=== PATIENT | female | born 1965 | race Caucasian/White ===

== ENCOUNTER 2019-01-29 09:22 | Outpatient (CLI) | payer OTHER ==
--- NOTE | 2019-01-29 09:50 | RAD ---
Exam: Chest 2 views: HISTORY: Cough for one week COMPARISON: 06/29/2015 FINDINGS: Parenchymal changes in the left infrahilar region and left lower lobe concerning for the possibility of pneumonia/pneumonitis and possible partial atelectasis. In the right midlung zone, right middle lobe, there is some linear parenchymal change which appears to be little change from 2015 study proba ivett some scarring or partial atelectasis. The mid and upper lung zones are clear. Heart size is normal. IMPRESSION: Right middle lobe and left lower lobe parenchymal changes, right middle lobe appears stable. Pneumoni a and/or partial atelectasis, and/or scarring suspected in the left lower lobe. Correlate clinically.
== END 2019-01-29 09:23 | disposition home or self-care (01) ==
LOC: BICRAD 09:22
PROVIDERS: ATTEND Family Medicine
DX: J44.9 Chronic obstructive pulmonary disease, unspecified (principal)
CPT/HCPCS: 71046

== ENCOUNTER 2019-09-02 14:15 | Outpatient (CLI) | payer OTHER ==
--- NOTE | 2019-09-02 14:35 | RAD ---
Right knee 4 views HISTORY: Right knee injury. FINDINGS: Joint spaces are preserved. No acute fracture, dislocation, or fluid distention of the supr apatellar bursa evident. IMPRESSION: No acute osseous abnormalities are demonstrated.
--- NOTE | 2019-09-02 16:32 | RAD ---
RIGHT FIFTH FINGER THREE VIEWS: HISTORY: Injury and pain to fifth finger. FINDINGS: There is abnormal ventral angulation of the tuft of the distal phalanx however there is no fracture l ine visible. There is evidence of mild soft tissue swelling. No dislocation. IMPRESSION: No evidence of fracture. Slight ventral angulation of the tuft of the distal phalanx seen on the late ral view could represent old injury. POS: [facility]
== END 2019-09-02 14:16 | disposition home or self-care (01) ==
LOC: BICRAD 14:15
PROVIDERS: ATTEND Family Medicine
DX: S60.051A Contusion of right little finger without damage to nail, initial encounter (principal); S80.01XA Contusion of right knee, initial encounter

== ENCOUNTER 2020-01-06 10:08 | Outpatient (CLI) | payer OTHER ==
--- NOTE | 2020-01-06 11:08 | ULT ---
EXAM: US Venous Doppler [facility] PROVIDED CLINICAL HISTORY: Left upper extremity edema and left arm pain from the level of the wrist to just above the antecubita l fossa. Symptoms have been present for 2 weeks. COMPARISON: None FINDINGS: Grayscale, color-flow, Doppler evaluation of left upper extremity venous structures is performed with 2-D imaging. Normal luminal compressibility and flow are seen in the left internal jugular and axillary veins. Nor mal flow is present in the left subclavian vein. Flow is present within the left upper extremity brachial vein. Grayscale imaging was not performed. F low appears to be present in the limited visualized left radial and ulnar veins. There is normal luminal compressibility and flow seen in the left upper extremity cephalic and basili c veins. IMPRESSION: No evidence of a DVT involving the visualized deep venous structures left upper extremity.
--- NOTE | 2020-01-06 11:38 | MMO ---
Bilateral MAMMO Bilat Screen [facility]. CLINICAL HISTORY: Patient is 54 years old and is seen for screening. The patient has the following family history of breast cancer: sister. The patient has no personal history of cancer. VIEWS: The views performed were: bilateral craniocaudal with tomosynthesis and bilateral mediolateral oblique with tomosynthesis. FILMS COMPARED: The present examination has been compared to prior imaging studies performed at [facility] on 05/25/2011 and 08/13/2011. This study has been interpreted with the assistance of computer-aided detection. MAMMOGRAM FINDINGS: There are scattered fibroglandular densities. There are vascular and punctate calcifications seen in both breasts. There are no suspicious masses, suspicious calcifications, or new areas of architectural distortion. IMPRESSION: THERE IS NO MAMMOGRAPHIC EVIDENCE OF MALIGNANCY. A ROUTINE FOLLOW-UP MAMMOGRAM IN 1 YEAR IS RECOMMENDED. THE RESULTS OF THIS EXAM WERE SENT TO THE PATIENT. ACR BI-RADS Category 2 - Benign finding MAMMOGRAPHY NOTE: 1. A negative mammogram report should not delay a biopsy if a dominant of clinically suspicious mass is present. 2. Approximately 10% to 15% of breast cancers are not detected by mammography. 3. Adenosis and dense breasts may obscure an underlying neoplasm. Reported by: ERASMO CLAUDIO MD Electonically Signed: [id number]
== END 2020-01-06 10:09 | disposition home or self-care (01) ==
LOC: BICULT 10:08
PROVIDERS: ATTEND Family Medicine
DX: Z12.31 Encounter for screening mammogram for malignant neoplasm of breast (principal); I82.622 Acute embolism and thrombosis of deep veins of left upper extremity; Z80.3 Family history of malignant neoplasm of breast
CPT/HCPCS: 77063; 77067

== ENCOUNTER 2024-04-07 11:52 | Outpatient (CLI) | payer OTHER | END 2024-04-07 11:53 | disposition home or self-care (01) | LOC: BICRAD 11:52 | PROVIDERS: ATTEND Physician Assistant Medical | DX: K59.00 Constipation, unspecified (principal); R14.0 Abdominal distension (gaseous) | CPT/HCPCS: 74019 ==

== ENCOUNTER 2024-06-09 10:02 | Outpatient (CLI) | payer OTHER | END 2024-06-09 10:03 | disposition home or self-care (01) | LOC: BICCT 10:02 | PROVIDERS: ATTEND Physician Assistant Medical | DX: K59.00 Constipation, unspecified (principal); R10.10 Upper abdominal pain, unspecified; R14.0 Abdominal distension (gaseous) | CPT/HCPCS: 74176; 82565 ==

== ENCOUNTER 2024-11-20 09:45 | Emergency (ER) | payer MEDICAID, OTHER ==
[2024-11-20 10:19] LABS: Bilirubin Negative (Negative); Blood, Urine 3+ (Negative); CAUTI Indications for Culture Dysuria,urgency,freq; Clarity Turbid (Clear); Glucose, Urine (Dipstick) Normal (Negative); Ketone, Urine Negative (Negative); Leukocyte 500 Leu/uL (Negative); Nitrite Negative (Negative); Protein, Urine (Dipstick) 50 mg/dL (Neg-Trace); RBC/HPF Greater than 50 HPF (0-3); Specific Gravity, Urine 1.023 (1.002-1.036); Squamous Epithelial 0-3 HPF (0-3); WBC/HPF Greater than 50 HPF (0-3)
[2024-11-20 10:20] LABS: Bacteria/HPF 1+ HPF (None Seen)
[2024-11-20 10:22] LABS: Urine Culture Reflex Yes Yes
[2024-11-20 11:18] LABS: #Basophils 0.05 10x3/uL (0.0-0.2); %Basophils 0.4 % (0.0-1.0); %Eosinophils 1.6 % (0.0-10.0); %Lymphocytes 22.3 % (21.0-51.0); %Monocytes 5.6 % (0.0-10.0); %Neutrophils 69.9 % (42.0-75.0); Hematocrit 43.5 % (36.0-47.0); Hemoglobin 14.3 g/dL (12.0-16.0); Mean Corpuscular HGB CONC 32.9 g/dL (32.0-36.0); Mean Corpuscular Volume 91.2 fL (78.0-98.0); Mean Platelet Volume 8.4 fL (7.4-10.4); Platelet Count 249 10x3/uL (130-400); RBC Distribution Width 12.9 % (11.5-14.5); Red Blood Cell (RBC) Count 4.77 mill/uL (4.20-5.40)
[2024-11-20 11:43] LABS: ALT (SGPT) 29 U/L (Less than 34); AST (SGOT) 34 U/L (11-34); Alkaline Phosphatase 83 U/L (40-110); Anion Gap 11 mmol/L (10-20); BUN (Urea Nitrogen) 12 mg/dL (9.8-20.1); Bilirubin, Total 0.7 mg/dL (0.3-1.2); Calc. Creatinine Clearance 0 mL/min (70-130); Carbon Dioxide 26 mmol/L (22-29); Chloride 106 mmol/L (98-107); Estimated GFR 49; Globulin 4.2 g/dL (2.4-3.5); Glucose 97 mg/dL (70-105); Potassium 4.2 mmol/L (3.5-5.1); Protein, Total 8.2 g/dL (6.0-8.3); Sodium 139 mmol/L (136-145)
== END 2024-11-20 13:02 | disposition home or self-care (01) ==
LOC: ERS 09:45
DX: N39.0 Urinary tract infection, site not specified (principal); F17.210 Nicotine dependence, cigarettes, uncomplicated; I25.2 Old myocardial infarction; I10 Essential (primary) hypertension; Z86.73 Personal history of transient ischemic attack (TIA), and cerebral infarction without residual deficits; Z79.899 Other long term (current) drug therapy
CPT/HCPCS: 36415; 74176; 80053; 81001; 85025; 87077; 87086; 87186